=== PATIENT | female | born 1995 | race Caucasian/White ===

== ENCOUNTER 2017-02-25 15:23 | Emergency (ER) | payer MEDICAID ==
[2017-02-25 15:43] VITALS: O2SAT 100
[2017-02-25] MEDS ORDERED: Sodium Chloride 0.9% 1,000 ML IV ONE (15:45)
--- NOTE | 2017-02-25 15:57 | C.PDOC ---
History Of Present Illness 21 y/o female 14 weeks gestation presents to ED with complaints of lower abdominal pressure for the past 3 hours. Pt has not had US this . Denies fever, active bleeding or any other complaints. Time Seen by Provider: 02/25/17 15:45 Chief Complaint (Nursing): Abdominal Pain History Per: Patient History/Exam Limitations: no limitations Onset/Duration Of Symptoms: Hrs Current Symptoms Are (Timing): Still Present Severity: Mild Location Of Pain/Discomfort: Suprapubic Quality Of Discomfort: Pressure Associated Symptoms: denies: Fever, Vomiting Exacerbating Factors: None Alleviating Factors: None Recent travel outside of the [place]: No Abnormal Vaginal Bleeding: No : 1 Para: 0 Past Medical History Reviewed: Historical Data, Nursing Documentation, Vital Signs Vital Signs: Last Vital Signs Temp 98.6 F 02/25/17 18:55 Pulse 70 02/25/17 18:55 Resp 16 02/25/17 18:55 BP 107/65 02/25/17 18:55 Pulse Ox 100 02/25/17 18:55 Family History: States: Unknown Family Hx - Social History Hx Alcohol Use: No Hx Substance Use: No - Immunization History Hx Tetanus Toxoid Vaccination: No Hx Influenza Vaccination: No Hx Pneumococcal Vaccination: No Review Of Systems Except As Marked, All Systems Reviewed And Found Negative. Constitutional: Negative for: Fever, Chills Gastrointestinal: Positive for: Abdominal Pain Genitourinary: Negative for: Vaginal Bleeding Physical Exam - Physical Exam Appears: Non-toxic, No Acute Distress Skin: Warm, Dry, No Rash Head: Atraumatic, Normacephalic Neck: Normal, Normal ROM, Supple Chest: Symmetrical Cardiovascular: Rhythm Regular, No Murmur Respiratory: Normal Breath Sounds, No Wheezing Gastrointestinal/Abdominal: Soft, Tenderness (suprapubic) Pelvic: Normal External Exam, No Vaginal Bleeding, Other (Os closed) Extremity: Bilateral: Atraumatic Neurological/Psych: Oriented x3, Normal Speech ED Course And Treatment - Laboratory Results Result Diagrams: 02/25/17 16:03 02/25/17 16:03 O2 Sat by Pulse Oximetry: 100 (room air) Pulse Ox Interpretation: Normal Progress Note: Plan: labs, UA, tylenol, IV fluids, bedside US. Discussed case and US results with OB non clinical advisor Dr Hunt. Recommends patient follow up outpatient in clinic in 3-4 days. Medical Decision Making Medical Decision Making: r/o ectopic vs miscarriage - labs imaging pending 513: pt reassessedL pain improved. 600: pt reassesed abd soft minimal ttp rh +, discussed results in depth with dr hunt, advises pt can be d/c home with outpt f/u . urine treated as pt . no vb, os closed. iup confirmed. Disposition - Disposition Referrals: Freeman Mars [Staff Provider] - [facility] [Outside] [facility] [Outside] [facility] [Outside] [facility] [Outside] Disposition: HOME/ ROUTINE Disposition Time: 17:29 Condition: STABLE Additional Instructions: please follow up with your doctor. return to er with worsening symptoms or concerns. please discuss your Ultrasound results with obgyn. Prescriptions: Cefpodoxime [Vantin] 100 mg PO BID #14 tab Instructions: Threatened Miscarriage (ED), Urinary Tract Infection in (ED) Forms: Work/School/Gym Excuse - Clinical Impression Clinical Impression: Threatened miscarriage - Scribe Statement The provider has reviewed the documentation as recorded by the Denisse Alves Provider Attestation: All medical record entries made by the Dorisibe were at my direction and personally dictated by me. I have reviewed the chart and agree that the record accurately reflects my personal performance of the history, physical exam, medical decision making, and the department course for this patient. I have also personally directed, reviewed, and agree with the discharge instructions and disposition.
[2017-02-25 16:14] LABS: BASO % 0.7 % (0.0-2.0); EOS # 0.2 K/uL (0.0-0.7); HEMOGLOBIN 11.1 g/dL (11.0-16.0); LYMPH # 1.2 K/uL (1.0-4.3); LYMPH % 20.8 % (20.0-40.0); MEAN CELL VOLUME 77.7 fL (81.0-99.0); MEAN CORPUSCULAR HEMOGLOBIN 24.6 pg (27.0-31.0); MEAN CORPUSCULAR HGB CONC 31.6 g/dL (33.0-37.0); MEAN PLATELET VOLUME 9.5 fL (7.2-11.7); MONO # 0.3 K/uL (0.0-0.8); MONO % 5.3 % (0.0-10.0); NEUT # 4.1 K/uL (1.8-7.0); NEUT % 69.2 % (50.0-75.0); RBC 4.5 Mil/uL (3.80-5.20); RED CELL DISTRIBUTION WIDTH 13.8 % (11.5-14.5); WHITE BLOOD COUNT 5.9 K/uL (4.8-10.8)
[2017-02-25 16:15] LABS: ALBUMIN 3.7 g/dL (3.5-5.0)
[2017-02-25 16:18] LABS: ALT/SGPT 15 U/L (9-52); AST/SGOT 20 U/L (14-36); BLOOD UREA NITROGEN 7 mg/dL (7-17); GFR AFRICAN-AMERICAN > 60; GFR NON-AFRICAN AMERICAN > 60
[2017-02-25 16:19] LABS: CALCIUM 9.3 mg/dl (8.6-10.4)
[2017-02-25 16:26] LABS: PROTHROMBIN TIME 10.8 SECONDS (9.7-12.2)
[2017-02-25 17:04] LABS: HCG,QUALITATIVE URINE POSITIVE (NEGATIVE)
[2017-02-25 17:09] LABS: URINE BILIRUBIN NEGATIVE (NEGATIVE); URINE BLOOD 3+ (NEGATIVE); URINE CLARITY Hazy (Clear); URINE COLOR Yellow (YELLOW); URINE GLUCOSE (UA) NORMAL (Normal); URINE LEUKOCYTE ESTERASE 3+ Leu/uL (Negative); URINE NITRATE NEGATIVE (NEGATIVE); URINE PROTEIN NEGATIVE (NEGATIVE); URINE UROBILINOGEN NORMAL mg/dL (0.2-1.0)
--- NOTE | 2017-02-25 17:22 | US ---
PROCEDURE: Obstetrical ultrasound examination HISTORY: abd pain and COMPARISON: Not available TECHNIQUE: Transabdominal FINDINGS: Examination demonstrates a single live intrauterine gestation. presentation is cephalic. The heart rate is 149 beats per minute. Normal quantity of amniotic fluid is visualized. A normal anterior placenta is identified. There is no evidence of placenta previa. There is questionable coronal amniotic separation. This is abnormal after approximately 14 weeks of gestation. The cervix is closed and measures 3.7 cm length. biometry yields a gestational age of 15 weeks 0 days. The FRANCISCO by ultrasound is 08/19/2017. Limited review of anatomy demonstrates fluid distending the stomach and urinary bladder. There is no hydronephrosis. The anterior abdominal wall is intact. IMPRESSION: Single live intrauterine gestation of approximately 15 weeks 0 days gestational age. heart rate 149 beats per minute. Normal amniotic fluid volume. No evidence of placenta previa. Possible chorioamnionitis separation. This is abnormal after approximately 14 weeks of gestation. Followup with [facility] is advised. Follow-up ultrasound recommended. Limited anatomy evaluated at this time.
[2017-02-25] MEDS ORDERED: cefTRIAXone IV 1 gm in Dextros 50 ML IVPB ONE (18:06)
[2017-02-25] MEDS ORDERED: cefTRIAXone IV 1 gm in Dextros 1 GM in Dextrose 5% In Water 50 ML IVPB STA (18:15)
[2017-02-25 18:56] VITALS: BP 107/65; PULSE 70; RESP 16; TEMP 98.6
== END 2017-02-25 18:55 | disposition home or self-care (01) ==
LOC: C.ER 15:23
DX: O20.0 Threatened abortion (principal); O23.42 Unspecified infection of urinary tract in pregnancy, second trimester; Z3A.14 14 weeks gestation of pregnancy
CPT/HCPCS: 76815; 80053; 81001; 84702; 84703; 85025; 85610; 85730; 86850; 86900; 87086; 96361; 96365; 99284; J0696; J7040